=== PATIENT | female | born 1955 | race Caucasian/White ===

== ENCOUNTER 2020-05-21 13:34 | Emergency (ER) | payer BC ==
[~2020-05-21] VITALS: Ht 165.1 cm; Wt 91.6 kg
[2020-05-21 13:48] VITALS: BP_SYST 161
--- NOTE | 2020-05-21 14:01 | NUR ---
Urine specimen collected.
--- NOTE | 2020-05-21 14:11 | NUR ---
Patient to ER bed 7 to gown for evaluation. Side rails up. Report given to AROLDO JUNIOR.
--- NOTE | 2020-05-21 14:45 | NUR ---
CALM, ALERT, RESP UNLABORED, SKIN WARM AND DRY. COMMUNICATES CLEARLY IN FULL COMPLETE SENTENCES, NO DISTRESS
--- NOTE | 2020-05-21 14:50 | NUR ---
DR DYER IN TO ASSESS
[2020-05-21] MEDS ORDERED: MORPHINE 4 MG/ML INJ. SYRINGE IVP ONE (15:00)
[2020-05-21] MEDS ORDERED: ONDANSETRON HCL 4 MG/2 ML VIAL IVP ONE (15:00)
[2020-05-21] MEDS ORDERED: NACL 0.9% 1,000 ML IV ONE (15:00)
[2020-05-21 15:14] LABS: BILIRUBIN,URINE NEGATIVE (NEGATIVE); BLOOD, URINE NEGATIVE (NEGATIVE); CLARITY/URINE CLEAR (CLEAR); COLOR,URINE YELLOW (YELLOW); GLUCOSE,URINE NEGATIVE (NEGATIVE); KETONES,URINE NEGATIVE (NEGATIVE); LEUKOCYTE ESTERASE ,URINE NEGATIVE (NEGATIVE); NITRITE, URINE NEGATIVE (NEGATIVE); PH,URINE 5.5 (5.0-8.0); PROTEIN URINE NEGATIVE (NEGATIVE); UROBILINOGEN,URINE 0.2 (0.2-1.0)
[2020-05-21 15:30] LABS: BASOPHILS % (AUTO) 0.9 % (0.0-2.0); EOSINOPHILS # (AUTO) 0.2 K/uL (0.0-0.4); EOSINOPHILS % (AUTO) 3.6 % (0.0-4.0); HEMATOCRIT 38.6 % (36-48); LYMPHOCYTES # (AUTO) 1.6 K/uL (1.0-5.5); LYMPHOCYTES % (AUTO) 28.2 % (20.5-51.5); MEAN CORPUSCULAR HEMOGLOBIN 29 pg (27-31); MEAN CORPUSCULAR HGB CONC 34 % (32-36); MEAN CORPUSCULAR VOLUME 86 fL (79.0-98.0); MONOCYTES # (AUTO) 0.5 K/uL (0.0-1.0); MONOCYTES % (AUTO) 9.3 % (1.7-9.3); NEUTROPHILS # (AUTO) 3.3 K/uL (1.8-7.7); PLATELET COUNT (AUTO) 256 K/uL (130-430); RED BLOOD CELL COUNT(AUTO) 4.48 MIL/uL (4.2-6.2); RED CELL DISTRIBUTION WIDTH 14.6 % (9.0-15.0); WHITE BLOOD COUNT (AUTO) 5.7 K/uL (4.8-10.8)
[2020-05-21 15:51] LABS: CALCIUM 8.5 mg/dL (8.4-11.0); CREATININE 0.91 mg/dL (0.55-1.30); POTASSIUM 3.7 mmol/L (3.5-5.1)
[2020-05-21 15:57] LABS: ALBUMIN 3.9 g/dL (3.4-4.8); TOTAL BILIRUBIN 0.3 mg/dL (0.0-1.0)
[2020-05-21] MEDS ORDERED: ONDA4TAB5 PO (16:22)
[2020-05-21] MEDS ORDERED: HYDR-4272 PO (16:22)
--- NOTE | 2020-05-21 16:23 | NUR ---
PAIN FREE, FEELING MUCH BETTER AND READY TO GO HOME
[2020-05-21 16:27] VITALS: BP_SYST 147
--- NOTE | 2020-05-21 16:46 | NUR ---
dr umaña at bedside to discuss
--- NOTE | 2020-05-21 16:54 | NUR ---
Patient given written and verbal discharge instructions and verbalizes understanding. ER MD discussed with patient the results and treatment provided. Patient in stable condition. ID arm band removed. IV catheter removed intact and dressing applied, no active bleeding. Rx of IBU/ZOFRAN given. Patient educated on pain management and to follow up with PMD. Pain Scale 0/10 Opportunity for questions provided and answered. Medication side effect fact sheet provided.
[2020-05-21] MEDS ORDERED: IBUP-1970 PO (16:55)
== END 2020-05-21 16:54 | disposition home or self-care (01) ==
LOC: SED 13:34
DX: K80.20 Calculus of gallbladder without cholecystitis without obstruction (principal); R11.2 Nausea with vomiting, unspecified; I10 Essential (primary) hypertension; Z79.899 Other long term (current) drug therapy
CPT/HCPCS: 36415; 74176; 76376; 80053; 81003; 83690; 85025; 96361; 96374; 96375; 99284; J2270; J2405; J7030